=== PATIENT | female | born 1995 | race Caucasian/White ===

== ENCOUNTER → 2020-09-03 16:41 | Outpatient (BNVA) | payer OTHER, SELFPAY | PROVIDERS: Family Provider Family Medicine; PCP Family Medicine; Visit Provider Nurse Practitioner | DX: R53.83 Other fatigue (principal) | CPT/HCPCS: 80053; 80061; 81000; 84443; 85025 ==

== ENCOUNTER → 2020-09-04 00:01 | Outpatient (BNVA) | payer OTHER, SELFPAY | PROVIDERS: Family Provider Family Medicine; PCP Family Medicine; Visit Provider Family Medicine | DX: R42 Dizziness and giddiness (principal); R53.83 Other fatigue | CPT/HCPCS: 82951 ==

== ENCOUNTER → 2021-04-22 11:19 | Outpatient (BNVA) | payer OTHER, MEDICAID, SELFPAY | PROVIDERS: Family Provider Family Medicine; PCP Family Medicine; Visit Provider Nurse Practitioner Family | DX: R30.0 Dysuria (principal); N92.6 Irregular menstruation, unspecified | CPT/HCPCS: 81000; 84702 ==

== ENCOUNTER → 2021-12-02 10:22 | Outpatient (BNVA) | payer MEDICAID, SELFPAY | PROVIDERS: PCP Family Medicine; Visit Provider Family Medicine | DX: Z01.812 Encounter for preprocedural laboratory examination (principal); Z20.822 Contact with and (suspected) exposure to COVID-19 | CPT/HCPCS: 87635 ==

== ENCOUNTER 2021-12-10 04:53 | Inpatient (IN) | payer MEDICAID, SELFPAY ==
[2021-12-10] VITALS (28 sets, daily range): BP systolic 99–123; BP diastolic 55–82; PULSE 69–99; RESP 17–18; TEMP 34.7–36.9; O2SAT 96–100; BMI 34.9
[2021-12-10 05:26] LABS: Basophils % 0.3 %; Eosinophils # 0.3 10^3/uL (0.0-0.8); Eosinophils % 4.8 %; Hematocrit 34.9 % (37.0-47.0); Hemoglobin 12.1 g/dL (11.5-15.3); Lymphocytes # 1.8 10^3/uL (0.8-4.8); Lymphocytes % 25.5 %; Mean Corpuscular HGB Conc 34.7 g/dL (30.0-36.0); Mean Corpuscular Hemoglobin 32.4 pg (28.0-34.0); Mean Corpuscular Volume 93.6 fl (81-99); Mean Platelet Volume 10.6 fL (7.4-10.4); Monocytes # 0.6 10^3/uL (0.2-0.9); Monocytes % 8.7 %; Neutrophils # 4.24 10^3/uL (1.8-7.7); Neutrophils % 59.3 %; Nucleated Red Blood Cells % 0 %; Platelet Count 143 10^3/cmm (130-400); Red Blood Count 3.73 10^6/uL (4.1-5.3); Red Cell Distribution Width 13.3 % (12.1-15.1); White Blood Count 7.1 10^3/uL (4.0-10.0)
[2021-12-10] MEDS: lactated ringers 1,000 ML 999 ML IV ×3 (05:32→16:21)
--- NOTE | 2021-12-10 06:46 | P.HP_ITS ---
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 The patient has had an unremarkable . There have been no complications other than her breech presentation. We discussed the option of performing external version. She declined. Her blood type is O+. Her antibody is negative. Her glucose screen was negative. She is GBS negative. The remainder of her labs are within normal limits. Present Details : 4 Para: 2 Date of Last Menstrual Period: 08/24/20 Calculated Date of Delivery: 05/31/21 Gestational Age Based on Last Menstrual Period: 69 Labs Rubella: Immune RPR: Negative GBS: Negative Review of Systems General: Reports: 10 or more systems reviewed and unremarkable except in HPI and below Const: Reports: fatigue; Denies: fever(s) Eyes: Denies: change in vision Card: Denies: chest pain Musc: Reports: back pain Dominic/Lymph: Denies: easy bruising Medications/Allergies Allergies Allergy/AdvReac Type Severity Reaction Status Date / Time amoxicillin Allergy rash/hives Verified 04/22/21 11:21 latex Allergy swelling/ra Verified 04/22/21 11:21 sh Penicillins Allergy rash Verified 04/22/21 11:21 sulfa ear drops Allergy hives Uncoded 04/22/21 11:21 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 PFSH: Medical History Attempted IUD removal, unsuccessful History of asthma IUD strings lost Surgical History History of appendectomy History of tonsillectomy Family History Other Cancer Diabetes Hypertension Stroke Denies family history of Dementia Chronic kidney disease (CKD) Anesthesia complication Bleeding disorder Lung disease Social History Smoking and tobacco status: never smoked Second hand smoke exposure: No Smoking risk assessment/counseling performed?: No Alcohol intake: never Desire information about alcohol rehabilitation?: No Counseling given: No Desire information about substance/drug rehabilitation?: No Counseling given: No Adopted: No Caregiver/support person: No Lives independently: Yes Household members: spouse Housing: House Marital status: Number of children: 2 service: No Current occupational status: employed Current occupation: [employer] History of recent travel: No Current gender identity: Female Other Female Reproductive History: Hx Age of Menarche: 18 Duration of menses: >10 days Menstrual flow: normal/abnormal: abnormal History History History 3 Term 2 Miscarriages/Ectopic 1 0 Living Children 2 Vitals/I&O/Wt Last Vital Signs Temp 97.7 F 12/10/21 05:34 Pulse 88 12/10/21 06:34 Resp 18 12/10/21 05:05 BP 102/60 12/10/21 06:34 12/09/21 12/09/21 12/10/21 14:59 22:59 06:59 Intake Total 1000 / 1000 Balance 1000 / 1000 Weight last 48 hrs Weight 210 lb Physical Exam Const: COMMON NORMALS: patient oriented x3 and alert HENMT: COMMON NORMALS: moist oral mucous membranes HEAD & SCALP: normal to inspection Chest: COMMONS NORMALS: normal inspection of the chest Resp: COMMON NORMALS: clear to auscultation bilaterally AUSCULTATION: clear to auscultation bilaterally Cardio: COMMON NORMALS: regular rate and regular rhythm RATE: regular rate RHYTHM: regular rhythm GI: INSPECTION: Yes normal to inspection and Yes other (Gravid) Extremity: COMMON NORMALS: normal to inspection GENERAL: Yes edema (Trace) Neuro: COMMON NORMALS: patient oriented x3, moves all extremities and no sensory deficits noted SENSORIUM/ORIENTATION: Yes alert Psych: COMMON NORMALS: mental status grossly normal Skin: COMMON NORMALS: no rashes or lesions noted GENERAL SKIN EXAM: no rashes or lesions noted Data : 12/10/21 05:15 A&P Assessment and plan (1) 39 weeks gestation of : We will proceed with the as scheduled. We have discussed the risks of bleeding, infection, and damage intra-abdominal organs. The patient and her understand these risks and wished to proceed. I anticipate routine post care. 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
[2021-12-10] MEDS: famotidine 20 mg/2 mL INJ IVP (06:49)
[2021-12-10] MEDS: citric acid-sodium citrate 30 mL UDC PO (06:49)
[2021-12-10] MEDS: metoclopramide 5 mg/mL SDV 2 mL 10 MG IVP (06:49)
--- NOTE | 2021-12-10 07:07 | P.ANESASSM_ITS ---
Documented by User: Ismael Cerrato CRNA 12/10/21 07:10 Pre-Anesthetic Assessment Height/Weight: Height 1.65 m Weight 95.254 kg Temp Pulse Resp BP 97.7 F 81 18 115/68 12/10/21 05:34 12/10/21 06:49 12/10/21 05:05 12/10/21 06:49 Preop Diagnosis: breech presentation Was Beta Surinder taken within 24 hours: N/A Was Clonidine taken within 24 hours: N/A Last intake: Intake Last Liquid Date 12/09/21 Last Liquid Time 20:00 Last Solid Date 12/09/21 Last Solid Time 19:30 Social No alcohol and No tobacco Exam alert, oriented x 3, clear to auscultation bilaterally and regular rate & rhythm Airway Submandibular: within normal limits Cervical ROM: within normal limits Mallampati: Class II Dentition: full Pulmonary Asthma (as a child, no problems now) CV/HEM None reported None reported Hepatic None reported GI Gastroesophageal Reflux Disease () Metabolic None reported Musc/skel None reported Neuropsych None reported Anesthetic Plan ASA status: 2 Anesthesia: Regional (specify below) Medications/Allergies Allergies Allergy/AdvReac Type Severity Reaction Status Date / Time amoxicillin Allergy rash/hives Verified 04/22/21 11:21 latex Allergy swelling/ra Verified 04/22/21 11:21 sh Penicillins Allergy rash Verified 04/22/21 11:21 sulfa ear drops Allergy hives Uncoded 04/22/21 11:21 [facility], [facility] Anesthesia Medical History Attempted IUD removal, unsuccessful History of asthma IUD strings lost Surgical History History of appendectomy History of tonsillectomy Family History Other Cancer Diabetes Hypertension Stroke Denies family history of Dementia Chronic kidney disease (CKD) Anesthesia complication Bleeding disorder Lung disease Social History Smoking and tobacco status: never smoked Second hand smoke exposure: No Smoking risk assessment/counseling performed?: No Alcohol intake: never Desire information about alcohol rehabilitation?: No Counseling given: No Desire information about substance/drug rehabilitation?: No Counseling given: No Adopted: No Caregiver/support person: No Lives independently: Yes Household members: spouse Housing: House Marital status: Number of children: 2 service: No Current occupational status: employed 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
--- NOTE | 2021-12-10 08:26 | ANE.PACU2 ---
Inpatient post-anesthesia follow up: Airway intact: Yes Vital signs: Temperature 97.7 F Pulse Rate 81 Respiratory Rate 18 Blood Pressure 115/68 Pulse Oximetry Oxygen Delivery Me thod Room Air Oxygen Flow Rate Fraction of Inspir ed Oxygen Hydration adequate: Yes Nausea and vomiting: No Pain level: 1 Mental status: Baseline
--- NOTE | 2021-12-10 08:32 | P.OP_ITS ---
Operative Report Date of procedure: December 10, 2021 Pre-op diagnosis: Preop Diagnosis breech presentation Post-op diagnosis: Breech presentation Procedure done: Lower transverse section Specimens removed/disposition: 1. Male with a weight of 7 pounds 9 ounces and Apgars of 8 and 9 2. Placenta with a three-vessel cord delivered intact Pathology: None Surgeon: Antonino Underwood Estimated blood loss: 600 Brief History: Refer to history and physical Procedure: The patient was brought back to the operating room where she was prepped and draped in usual sterile fashion. Anesthesia was found to be adequate. A lower transverse skin incision was then made with a #10 blade. I then dissected down to the underlying subcutaneous tissue until arriving at the prerectal fascia. The fascia was then nicked with the scalpel bilaterally. The fascial incisions were then carried laterally with Lawton scissors. Attention was then turned to the superior aspect of the incision which was grasped with kochers and tented up away from the underlying rectus abdominis muscles. The muscles were then dissected away from the fascia manually, and later with Lawton scissors. Attentio n was then turned to the inferior aspect of the incision, and the fascia was dissected away from the underlying muscle in similar fashion. The rectus abdominis muscles were then spread manually. The peritoneum was entered manually. Excellent visualization of the uterus was noted. A lower transverse uterine incision was then made with a #10 blade. Upon arriving at the intrauterine cavity, the uterine incision was then extended manually. The infant was noted to be in gustavo breech position. The baby was delivered without difficulty. After delivery of the head, the mouth and nose were sucti oned at the site of the incision. There was no meconium. There was no nuchal cord. The cord was cut and clamped. The baby was then handed to the waiting nurse. The placenta was removed intact. The uterus was externalized. The intrauterine cavity was cleansed of any remaining debris. The uterine incision was reapproximated in 2 layers. The first layer was performed with 0 Vicryl in a running locked stitch. The second layer was an imbricating stitch also using 0 Vicryl. The uterus was replaced into the abdomen. The peritoneum was then irrigated with warm saline. I reexamined the uterine incision and found it to be hemostatic. The rectus abdominis muscles were then reapproximated using 0 Vicryl in a running stitch. The fascia was then reapproximated using 0 Vicryl in running stitch. The subcutaneous tissue was then reapproximated using 0 Vicryl in a running stitch. The skin was reapproximated using volodymyr. A sterile dressing was placed. All counts were correct x2. Both the mother and baby were in stable condition.
--- NOTE | 2021-12-10 10:35 | PC.NURSE ---
Several different thermometers all gave the same reading mena cardenas applied at this time
[2021-12-10] MEDS: ondansetron 2 mg/ML SDV 2 mL 4 MG IVP (10:49)
--- NOTE | 2021-12-10 11:30 | PC.NURSE ---
Called respiratory and requested them to bring incentive spirometer as we are out.
[2021-12-10] MEDS: dextrose 5%-lactated ringers 1,000 ML 125 ML IV ×2 (12:45→18:41)
[2021-12-10] MEDS: lanolin oint 7 gm 1 APPLIC TOPICAL (12:52)
--- NOTE | 2021-12-10 13:34 | ANE.PACU2 ---
Inpatient post-anesthesia follow up: Airway intact: Yes Vital signs: Temperature 98.3 F Pulse Rate 99 Respiratory Rate 17 Blood Pressure 110/65 Pulse Oximetry 98 Oxygen Delivery Me thod Room Air Oxygen Flow Rate Fraction of Inspir ed Oxygen Hydration adequate: Yes Nausea and vomiting: No Pain level: 1 Mental status: Baseline
--- NOTE | 2021-12-10 14:30 | PC.NURSE ---
Patient was assisted from the chair back to bed with no problems. She tolerated it well. She denies any nausea or dizziness at this time. She would like to rest after being in the chair for over an hour before she tries to walk. She is going to try and walk around 1530.
--- NOTE | 2021-12-10 16:15 | PC.NURSE ---
Patient was assisted from bed to trial walking for the first time since this morning. She has been up in the room to get into chair and back into bed and tolerated that fine but once she exited the room and walked a couple feet she reported feeling dizzy and nauseated. She was very pale and her knees started to buckle. She did not lose consciousness. This nurse yelled out for help and was brought over a chair for the patient to sit in she was helped into the chair. Her vitals were obtained and her blood pressure was 71/46. We gave her apple juice to drink and cold rag for her head. She was started on a LR bolus of fluid at 999. She was wheeled back into her room and assisted back to bed. Her color had returned by the time she was helped back to bed. She was no longer feeling dizzy or nauseated. Her vitals were obtained again and her blood pressure was 125/65 heart rate was 86 temperature was 98.4 and RR was 17. Report was given to Dr. Underwood and order for CBC was obtained and blood sent to lab. Dr. Underwood came to evaluate the patient and gave no new orders continue the same. She is going to try and eat some jello as she is on a clear liquid diet at this time.
[2021-12-10 16:58] LABS: Basophils % 0.3 %; Eosinophils # 0.1 10^3/uL (0.0-0.8); Eosinophils % 0.5 %; Hematocrit 33.1 % (37.0-47.0); Hemoglobin 10.6 g/dL (11.5-15.3); Lymphocytes # 1.1 10^3/uL (0.8-4.8); Lymphocytes % 8.9 %; Mean Platelet Volume 10.4 fL (7.4-10.4); Monocytes # 0.6 10^3/uL (0.2-0.9); Monocytes % 4.6 %; Neutrophils # 10.92 10^3/uL (1.8-7.7); Neutrophils % 84.9 %; Nucleated Red Blood Cells % 0 %; Platelet Count 127 10^3/cmm (130-400); Red Blood Count 3.31 10^6/uL (4.1-5.3); Red Cell Distribution Width 13.7 % (12.1-15.1); White Blood Count 12.9 10^3/uL (4.0-10.0)
--- NOTE | 2021-12-10 18:29 | PC.NURSE ---
Called placed to Dr. Underwood to discuss if the results of CBC had to leave message.
[2021-12-10] MEDS: docusate sodium 100 mg Capsule PO (18:41)
--- NOTE | 2021-12-10 21:00 | PC.NURSE ---
patient in [place] ambulating assisted by Celeste Vasquez RN
[2021-12-10] MEDS: ketorolac 30 mg/mL INJ IVP (21:01)
[2021-12-11] MEDS: ketorolac 30 mg/mL INJ IVP (03:10)
[2021-12-11 03:34] VITALS: BP 103/60; PULSE 105; RESP 18; TEMP 37.3
[2021-12-11 05:15] LABS: Basophils % 0.2 %; Eosinophils # 0.1 10^3/uL (0.0-0.8); Eosinophils % 1.2 %; Hematocrit 23.5 % (37.0-47.0); Lymphocytes # 1.3 10^3/uL (0.8-4.8); Lymphocytes % 12.7 %; Mean Corpuscular Hemoglobin 32.7 pg (28.0-34.0); Mean Corpuscular Volume 95.9 fl (81-99); Mean Platelet Volume 10.2 fL (7.4-10.4); Monocytes # 0.6 10^3/uL (0.2-0.9); Monocytes % 5.7 %; Neutrophils # 7.98 10^3/uL (1.8-7.7); Neutrophils % 79.9 %; Nucleated Red Blood Cells % 0 %; Platelet Count 125 10^3/cmm (130-400); Red Blood Count 2.45 10^6/uL (4.1-5.3); Red Cell Distribution Width 13.6 % (12.1-15.1)
[2021-12-11] MEDS: prenatal vitamin Capsule 1 CAP PO (08:33)
[2021-12-11] MEDS: ferrous sulfate EC 325 mg Tablet PO (08:33)
[2021-12-11] MEDS: docusate sodium 100 mg Capsule PO (08:34)
[2021-12-11] MEDS: HYDROcodone-acetaminophen 5-325 mg Tablet PO ×3 (08:34→19:17)
[2021-12-11 09:45] VITALS: BP 115/74; PULSE 112; RESP 17; TEMP 36.6; O2SAT 98
--- NOTE | 2021-12-11 12:09 | PM.PN ---
Subjective Subjective: She states she is doing well today. She is still on clear liquid diet as she has not passed any flatus. Her pain is little more increased from yesterday but that is to be expected. Her bleeding is about likely heavy period. Vitals/I&O/Wt Last Vital Signs Temp 99.1 F 12/11/21 03:34 Pulse 105 H 12/11/21 03:34 Resp 18 12/11/21 03:34 BP 103/60 12/11/21 03:34 Pulse Ox 100 12/10/21 19:02 12/10/21 12/11/21 12/11/21 22:59 06:59 14:59 Intake Total 977.667 / 4077.667 Output Total 1300 / 2350 525 / 2875 Balance -322.333 / 1727.667 -525 / 1202.667 Weight last 48 hrs Weight 95.254 kg Physical Exam Const: OTHER: Alert and oriented sitting up breast-feeding baby in bed, pupils equal round reactive to light ocular extraocular movements intact, heart regular rate and rhythm, lungs clear to auscultation bilaterally, abdomen is soft with appropriate postoperative tenderness, bowel sounds are heard in all but the left lower quadrant, incision is clean dry and intact, volodymyr are in place, there is no erythema or exudates, she has trace edema with no calf tenderness. Urinary Catheter Management: Bowen Latex Free: Cath Placed During This Visit: yes, but has since been removed by the nurse Reason for Continuing Indwelling Catheter: Perioperative Use in Selected Surgeries Urinary Catheter Date of Insertion: 12/10/21 Urinary Catheter Time of Insertion: 07:26 Date Urinary Catheter Removed: 12/10/21 Time Urinary Catheter Discontinued: 22:30 Data : 12/11/21 05:10 A&P Assessment and plan (1) Status post primary low transverse section: Postop day #1 doing well. Since she has good bowel sounds and is feeling quite hungry, I will go ahead and let her eat. She was advised to get up and walk the halls today. She was advised to stop eating immediately if she felt any nausea or abdominal pain. Status: Acute (2) Breech presentation: Status: Acute (3) 39 weeks gestation of : Status: Acute Attestations Medical Necessity Statement*: Routine postoperative and care Coding Level of Care Code Acute Supervisor Slitting And Shipping for Chg Fwd Diagnoses Status post primary low transverse section Z98.891 Breech presentation O32.1XX0 39 weeks gestation of Z3A.39
[2021-12-11] MEDS: simethicone 80 mg Chew PO (14:57)
[2021-12-11 16:50] VITALS: BP 120/78; PULSE 78; RESP 17; TEMP 36.8
[2021-12-11 21:00] VITALS: BP 103/61; PULSE 101; RESP 18; TEMP 36.8
[2021-12-11] MEDS: ibuprofen 800 mg tablet PO (21:11)
[2021-12-12 03:00] VITALS: BP 95/59; PULSE 84; RESP 18; TEMP 36.5
[2021-12-12] MEDS: HYDROcodone-acetaminophen 5-325 mg Tablet PO (07:15)
[2021-12-12] MEDS: prenatal vitamin Capsule 1 CAP PO (08:44)
[2021-12-12] MEDS: docusate sodium 100 mg Capsule PO (08:44)
[2021-12-12] MEDS: ibuprofen 800 mg tablet PO ×2 (08:44→14:26)
[2021-12-12 10:48] VITALS: BP 113/75; PULSE 98; RESP 18; TEMP 36.5; O2SAT 99
--- NOTE | 2021-12-12 11:19 | P.DS_ITS ---
Discharge Providers Date of Admission: 12/10/21 04:53 Date of Discharge: December 12, 2021 Attending Provider at Admission: Antonino Underwood MD Attending Provider at Discharge: Antonino Underwood MD Primary Care Provider: Antonino Underwood MD Diagnoses at Discharge Discharge Diagnosis (1) Status post primary low transverse section: Status: Acute (2) Breech presentation: Status: Acute (3) 39 weeks gestation of : Status: Acute Reason for Visit Reason for Visit: IUP, C_Section on 12-10-21 Hospital Course Hospital Course This is a 26-year-old G4 now P3 who was admitted for a scheduled primary section secondary to breech presentation. There were no complications of the procedure. She did well postoperatively and on postop day #2 she was amb ulating, tolerating a regular diet, was passing flatus, and had good pain control. She was discharged home in good condition. Physical Exam Narrative: Alert and oriented, sitting on bedside couch. Heart regular rate and rhythm, lungs clear to auscultation bilaterally, abdomen soft with appropriate postoperative tenderness, incision clean dry and intact with volodymyr in place. No calf tenderness no edema. Urinary Catheter Management: Bowen Latex Free: Cath Placed During This Visit: yes, but has since been removed by the nurse Reason for Continuing Indwelling Catheter: Perioperative Use in Selected Surgeries Urinary Catheter Date of Insertion: 12/10/21 Urinary Catheter Time of Insertion: 07:26 Date Urinary Catheter Removed: 12/10/21 Time Urinary Catheter Discontinued: 22:30 Discharge Data Studies Completed and Pending Laboratory Results WBC 10.0 10^3/uL (4.0-10.0) 12/11/21 05:10 RBC 2.45 10^6/uL (4.1-5.3) L 12/11/21 05:10 Hgb 8.0 g/dL (11.5-15.3) L 12/11/21 05:10 Hct 23.5 % (37.0-47.0) L 12/11/21 05:10 MCV 95.9 fl (81-99) 12/11/21 05:10 MCH 32.7 pg (28.0-34.0) 12/11/21 05:10 MCHC 34.0 g/dL (30.0-36.0) D 12/11/21 05:10 RDW 13.6 % (12.1-15.1) 12/11/21 05:10 Plt Count 125 10^3/cmm (130-400) L 12/11/21 05:10 MPV 10.2 fL (7.4-10.4) 12/11/21 05:10 Neut % (Auto) 79.9 % 12/11/21 05:10 Lymph % (Auto) 12.7 % 12/11/21 05:10 Davison % (Auto) 5.7 % 12/11/21 05:10 Eos % (Auto) 1.2 % 12/11/21 05:10 Baso % (Auto) 0.2 % 12/11/21 05:10 Neut # (Auto) 7.98 10^3/uL (1.8-7.7) H 12/11/21 05:10 Lymph # (Auto) 1.3 10^3/uL (0.8-4.8) 12/11/21 05:10 Davison # (Auto) 0.6 10^3/uL (0.2-0.9) 12/11/21 05:10 Eos # (Auto) 0.1 10^3/uL (0.0-0.8) 12/11/21 05:10 Baso # (Auto) 0.0 10^3/uL (0.0-0.1) 12/11/21 05:10 Nucleated RBC % (auto) 0 % 12/11/21 05:10 Nucleated RBCs # 0.0 /100WBC 12/11/21 05:10 Vitals Last Vital Signs Temp 97.7 F 12/12/21 10:48 Pulse 98 12/12/21 10:48 Resp 18 12/12/21 10:48 BP 113/75 12/12/21 10:48 Pulse Ox 99 12/12/21 10:48 Discharge Plan Discharge Patient Disposition: Home Condition: Stable Prescriptions: New ibuprofen 800 mg Tablet 800 mg PO TID PRN (Reason: Abdominal Discomfort) Qty: 30 0RF hydrocodone-acetaminophen 5-325 mg Tablet 1 - 2 tab PO Q4H PRN (Reason: Moderate To Severe Pain) Qty: 15 0RF docusate sodium 100 mg Capsule 100 mg PO BID 30 Days Qty: 60 0RF Discharge Orders: Discharge Order (Routine); Ordered 12/12/21 Ordered By: Hailey Campo Referrals: Hailey Campo MD [Physician] - 1-3 days (Monday) Discharge Diet: Usual diet Discharge Activity: Limit activity as instructed Patient Instructions: Depression (DC), Expression, Collection and Storage of Breast Milk (DC), Bleeding (DC), Preeclampsia and Eclampsia After Delivery (GEN), OB - Yasmine/Alber, OB Discharge Report, Opioid Safety, OB Home Care Discharge Attestations Time Spent in Discharge Care*: less than 30 min Quality Metrics Clinical Quality Measures [ No reported AMI, CVA or VTE this stay] Coding Level of Care Code Acute Chg FW DC note Diagnoses Status post primary low transverse section Z98.891 Breech presentation O32.1XX0 39 weeks gestation of Z3A.39
[2021-12-12 18:32] VITALS: BP 121/75; PULSE 98; RESP 16; TEMP 36.7; O2SAT 100
== END 2021-12-12 18:20 | disposition home or self-care (01) | DRG 788 ==
PROVIDERS: Admitting Provider Family Medicine; PCP Family Medicine; Visit Provider Family Medicine
PROC: 10D00Z1 Extraction of Products of Conception, Low, Open Approach (ICD-10-PCS; CPT 59514; principal; 2021-12-10 07:00)
DX: O64.1XX0 Obstructed labor due to breech presentation, not applicable or unspecified (principal); O99.62 Diseases of the digestive system complicating childbirth; K21.9 Gastro-esophageal reflux disease without esophagitis; Z3A.39 39 weeks gestation of pregnancy; Z37.0 Single live birth
CPT/HCPCS: 12345; 36415; 51702; 59025; 59409; 85025; 96374; 96375; 96376; J0690; J1885; J2274; J2370; J2405; J2765; J3490

== ENCOUNTER → 2022-01-21 10:53 | Outpatient (BNVA) | payer MEDICAID, SELFPAY | PROVIDERS: PCP Family Medicine; Visit Provider Nurse Practitioner Family | DX: R50.9 Fever, unspecified (principal); R68.89 Other general symptoms and signs | CPT/HCPCS: 87400 ==

== ENCOUNTER 2022-09-30 01:52 | Emergency (ER) | payer MEDICAID, SELFPAY ==
[2022-09-30 01:56] VITALS: BP 124/82; PULSE 81; RESP 16; TEMP 37.1; O2SAT 97; BMI 30.4
[2022-09-30 02:20] VITALS: BP 126/86; PULSE 81; RESP 16; O2SAT 99
--- NOTE | 2022-09-30 02:24 | CTR_ITS ---
PROCEDURE INFORMATION: Exam: CT Abdomen And Pelvis Without Contrast Exam date and time: 09/30/2022 2:59 AM Age: 27 years old Clinical indication: Abdominal pain; Prior surgery; Surgery type: Appy. Csection; Patient HX: C/O left flank pain with nausea. TECHNIQUE: Imaging protocol: Computed tomography of the abdomen and pelvis without contrast. Radiation optimization: All CT scans at this facility use at least one of these dose optimization techniques: automated exposure control; mA and/or kV adjustment per patient size (includes targeted exams where dose is matched to clinical indication); or iterative reconstruction. COMPARISON: CT abdomen pelvis w con* [id number] 12/04/2017 2:27 AM RADIATION DOSE METRICS: Total DLP (mGy-cm): 705.53 FINDINGS: Lungs: The visualized lung bases are clear. Liver: Unremarkable. No discrete mass. Gallbladder and bile ducts: No calcified gallstones or biliary dilation identified. Pancreas: Unremarkable with no suspicious mass. No ductal dilation. Spleen: The spleen is not enlarged. No suspicious mass is noted. Adrenal glands: Normal. No mass. Kidneys and ureters: No solid renal mass or hydronephrosis. Stomach and bowel: Moderately fecal filled colon. No small bowel obstruction, abscess or free air. Appendix: Status post appendectomy. Intraperitoneal space: See Stomach and bowel finding. Vasculature: No AAA or acute vascular lesion identified. Lymph nodes: No enlarged lymph nodes. Urinary bladder: Unremarkable as visualized. Reproductive: IUD in place. Bones/joints: No acute fracture. Soft tissues: No acute or suspicious finding noted. CT/CT kidney stone 32020 IMPRESSION: 1. No acute finding. 2. Constipation and other chronic findings above. Absent appendix.
--- NOTE | 2022-09-30 02:25 | W.ED.ABDPA2 ---
Documented by User: COLLIN Gamboa 09/30/22 02:58 HPI - Abdominal Pain General: Chief Complaint: Abdominal Pain Stated Complaint: lower abd and back pain Time Seen by Provider: 09/30/22 01:56 History of Present Illness: Patient is a 27-year-old female comes to the ED with left flank pain. Symptoms started at 10 PM tonight. Patient says she was at rest and developed an abrupt sharp intense pain in her left lower side of her abdomen and in left lower back. She rates the pain currently an 8 out of 10. Denies any pain like this in the past. Patient has IUD and states that she has some vaginal bleeding daily that she describes as spotting. this morning she did have an episode where she bled through 1 pad over a span of 1 to 2 hours but then the bleeding completely stopped. She did not have any other symptoms at the time of heavy vaginal bleeding earlier this morning. She has not had any other vaginal bleeding since this morning. Denies fevers, dysuria or hematuria. Denies any history of kidney stones. She has a past surgical history of a and appendectomy. Associated Symptoms: Denies chills, constipation, diarrhea, dysuria, fever(s), hematochezia, hematuria, nausea and vomiting Related Data: Date of Last Menstrual Period: 08/24/20 Review of Systems Const: Denies: fever(s), chills or fatigue Eyes: Denies: change in vision or eye discomfort ENMT: Denies: throat pain, odynophagia, nasal discharge or nasal congestion Card: Denies: chest pain, palpitations, edema, swelling of feet/ankles, dyspnea on exertion or orthopnea Resp: Denies: dyspnea, productive cough or non-productive cough GI: Denies: abdominal pain, nausea, vomiting, diarrhea, constipation or hematochezia : Reports: flank pain (Left flank) and vaginal bleeding (Episode of bleeding this morning. No current bleeding); Denies: dysuria or hematuria Musc: Denies: neck pain, back pain or extremity swelling Skin/Breast: Denies: rash or new lesions Neuro: Denies: headache(s), numbness in extremities or weakness in extremities PFS ED PFSH: Medical History Attempted IUD removal, unsuccessful History of asthma IUD strings lost Surgical History History of appendectomy History of tonsillectomy Family History Other Cancer Diabetes Hypertension Stroke Denies family history of Dementia Chronic kidney disease (CKD) Anesthesia complication Bleeding disorder Lung disease Social History Smoking and tobacco status: never smoked Second hand smoke exposure: No Smoking risk assessment/counseling performed?: No Alcohol intake: never Desire information about alcohol rehabilitation?: No Counseling given: No Desire information about substance/drug rehabilitation?: No Counseling given: No Adopted: No Caregiver/support person: No Lives independently: Yes Household members: spouse Housing: House Marital status: Number of children: 2 service: No Current occupational status: employed Current occupation: [employer] History of recent travel: No Current gender identity: Female Female Reproductive History: Date of last menstrual period: 08/24/20 Para: 2 Spontaneous abortions: Yes Physical Exam Const: COMMON NORMALS: patient oriented x3, healthy appearing and alert GENERAL APPEARANCE: cooperative HENMT: COMMON NORMALS: normocephalic HEAD & SCALP: normocephalic MOUTH: Normal oral and palatal mucosa present THROAT: posterior oropharynx normal and uvula midline Neck/C-Spine: COMMON NORMALS: supple GENERAL: Yes normal visual inspection Resp: COMMON NORMALS: normal respiratory effort, No retractions, No use of accessory muscles and clear to auscultation bilaterally AUSCULTATION: clear to auscultation bilaterally Cardio: COMMON NORMALS: regular rate, regular rhythm, S1 normal heart sound present, S2 normal heart sound present, No gallops present (Cardio), No clicks present (Cardio), No murmurs present (Cardio) and Peripheral pulses 2+ throughout RATE: regular rate RHYTHM: regular rhythm HEART SOUNDS: S1 normal heart sound present and S2 normal heart sound present PERIPHERAL PULSES: Peripheral pulses 2+ throughout GI: COMMON NORMALS: Normal to inspection, nondistended, normoactive bowel sounds present, Soft to palpation and no masses PALPATION: Yes Soft to palpation and Yes Tenderness to palpation present (GI) Details: LLQ : BLADDER/KIDNEY EXAM: Yes CVA tenderness on the left Back/Pelvis: GENERAL BACK: Yes CVA tenderness Extremity: COMMON NORMALS: normal to inspection Neuro: COMMON NORMALS: patient oriented x3 SENSORIUM/ORIENTATION: Yes alert GAIT: Yes Normal gait present Skin: GENERAL SKIN EXAM: dry skin Course Vital Signs: Vital signs: Vital Signs Temperature 98.7 F 09/30/22 01:56 Pulse Rate 89 09/30/22 04:09 Respiratory Rate 14 09/30/22 04:09 Blood Pressure 121/75 09/30/22 04:09 Pulse Oximetry 99 09/30/22 04:09 Oxygen Delivery Me thod 09/30/22 01:56 MDM - Abdominal Pain Medical Decision Making Patient is a 27-year-old female comes to the ED with abrupt onset of left flank pain. Past surgical history of appendectomy and approximately 10 months ago. Denies any history of kidney stones. Denies any dysuria or hematuria. Vitals are stable. Patient appears nontoxic and in no acute distress. She has some left CVA tenderness along with some left lower quadrant abdominal tenderness but rest of exam is benign. Labs and CT kidney stone pending. Patient case was signed over to Dr. Lee and he will be managing patient care and dispo plan. Lab Data I reviewed the patient's lab results. 09/30/22 02:28 09/30/22 02:28 Labs/Radiology: Radiology Impressions Abdomen/Pelvis CT 09/30/22 02:24 IMPRESSION: 1. No acute finding. 2. Constipation and other chronic findings above. Absent appendix. Laboratory Results WBC 13.6 10^3/uL (4.0-10.0) H 09/30/22 02:28 RBC 4.73 10^6/uL (4.1-5.3) 09/30/22 02:28 Hgb 14.5 g/dL (11.5-15.3) 09/30/22 02:28 Hct 42.7 % (37.0-47.0) 09/30/22 02:28 MCV 90.3 fl (81-99) 09/30/22 02:28 MCH 30.7 pg (28.0-34.0) 09/30/22 02:28 MCHC 34.0 g/dL (30.0-36.0) 09/30/22 02:28 RDW 12.1 % (12.1-15.1) 09/30/22 02:28 Plt Count 189 10^3/cmm (130-400) 09/30/22 02:28 MPV 9.5 fL (7.4-10.4) 09/30/22 02:28 Neut % (Auto) 84.9 % 09/30/22 02:28 Lymph % (Auto) 9.1 % 09/30/22 02:28 Terrell % (Auto) 4.3 % 09/30/22 02:28 Eos % (Auto) 0.7 % 09/30/22 02:28 Baso % (Auto) 0.3 % 09/30/22 02:28 Neut # (Auto) 11.58 10^3/uL (1.8-7.7) H 09/30/22 02:28 Lymph # (Auto) 1.2 10^3/uL (0.8-4.8) 09/30/22 02:28 Terrell # (Auto) 0.6 10^3/uL (0.2-0.9) 09/30/22 02:28 Eos # (Auto) 0.1 10^3/uL (0.0-0.8) 09/30/22 02:28 Baso # (Auto) 0.0 10^3/uL (0.0-0.1) 09/30/22 02:28 Nucleated RBC % (auto) 0 % 09/30/22 02:28 Nucleated RBCs # 0.0 /100WBC 09/30/22 02:28 Sodium 138 mmol/L (136-145) 09/30/22 02:28 Potassium 3.8 mmol/L (3.5-5.1) 09/30/22 02:28 Chloride 104 mmol/L (98-107) 09/30/22 02:28 Carbon Dioxide 24 mmol/L (22-29) 09/30/22 02:28 Anion Gap 13.8 (5-19) 09/30/22 02:28 BUN 12 mg/dL (6-20) 09/30/22 02:28 Creatinine 0.6 mg/dL (0.5-0.9) 09/30/22 02:28 GFR Calculation 121.8 mL/min (90-130) 09/30/22 02:28 Glucose 107 mg/dL (65-115) 09/30/22 02:28 Calculated Osmolality 286 mOsm/kg (285-295) 09/30/22 02:28 Calcium 9.0 mg/dL (8.5-10.5) 09/30/22 02:28 Total Bilirubin 0.3 mg/dL (0.15-1.2) 09/30/22 02:28 AST 14 U/L (0-32) 09/30/22 02:28 ALT 9 U/L (0-33) 09/30/22 02:28 Alkaline Phosphatase 97 U/L (35-105) 09/30/22 02:28 Total Protein 7.3 g/dL (6.6-8.7) 09/30/22 02:28 Albumin 4.4 g/dL (3.5-5.2) 09/30/22 02:28 Globulin 2.9 g/dL (1.3-4.6) 09/30/22 02:28 Lipase 23 U/L (13-60) 09/30/22 02:28 HCG, Qual Negative (Negative) 09/30/22 02:28 Urine Color Yellow (Yellow) 09/30/22 02:28 Urine Appearance Sl hazy (CLEAR) A 09/30/22 02:28 Urine pH 5 (5-7) 09/30/22 02:28 Ur Specific [place] 1.020 (1.005-1.030) 09/30/22 02:28 Urine Protein Trace (Negative) 09/30/22 02:28 Urine Glucose (UA) Norm (Normal) 09/30/22 02:28 Urine Ketones 1+ (Negative) H 09/30/22 02:28 Urine Blood 3+ (Negative) H 09/30/22 02:28 Urine Nitrate Negative (Negative) 09/30/22 02:28 Urine Bilirubin Neg (Negative) 09/30/22 02:28 Urine Urobilinogen Norm mg/dL (Negative) 09/30/22 02:28 Ur Leukocyte Esterase Trace (Negative) H 09/30/22 02:28 Urine RBC 10-15 /hpf (0-2) H 09/30/22 02:28 Urine WBC 0-4 /hpf (0-5) H 09/30/22 02:28 Ur Squamous Epith Cells 10-15 /hpf (0-5) H 09/30/22 02:28 Amorphous Sediment Not Reportable 09/30/22 02:28 Urine Bacteria 1+ /hpf (NONE) H 09/30/22 02:28 Urine Mucus 2+ /hpf 09/30/22 02:28 Discharge Plan Discharge Patient Disposition: Home Clinical Impression: Abdominal pain, Constipation Condition: Stable Prescriptions: New Miralax 17 gram powder in packet 17 g PO DAILY PRN (Reason: constipation) Qty: 14 0RF No Action oseltamivir [Tamiflu] 75 mg capsule 75 mg PO BID 5 Days Qty: 10 0RF ibuprofen 800 mg Tablet 800 mg PO TID PRN (Reason: Abdominal Discomfort) Qty: 30 0RF hydrocodone-acetaminophen 5-325 mg Tablet 1 - 2 tab PO Q4H PRN (Reason: Moderate To Severe Pain) Qty: 15 0RF Discharge Orders: Discharge ED (Routine); Ordered 09/30/22 Ordered By: Margret Lee Referrals: Antonino Underwood MD [Primary Care Provider] - 1-3 days Discharge Diet: Advance as tolerated Discharge Activity: Resume usual activity Patient Instructions: Constipation (ED), Abdominal Pain (ED) Coding Level of Care Code ED 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 Documented by User: Margret Lee MD 09/30/22 04:53 HPI - Abdominal Pain General: Chief Complaint: Abdominal Pain Stated Complaint: lower abd and back pain Time Seen by Provider: 09/30/22 01:56 PFSH ED PFSH: Medical History Attempted IUD removal, unsuccessful History of asthma IUD strings lost Surgical History History of appendectomy History of tonsillectomy Family History Other Cancer Diabetes Hypertension Stroke Denies family history of Dementia Chronic kidney disease (CKD) Anesthesia complication Bleeding disorder Lung disease Social History Smoking and tobacco status: never smoked Second hand smoke exposure: No Smoking risk assessment/counseling performed?: No Alcohol intake: never Desire information about alcohol rehabilitation?: No Counseling given: No Desire information about substance/drug rehabilitation?: No Counseling given: No Adopted: No Caregiver/support person: No Lives independently: Yes Household members: spouse Housing: House Marital status: Number of children: 2 service: No Current occupational status: employed Current occupation: [employer] History of recent travel: No Current gender identity: Female Course Vital Signs: Vital signs: Vital Signs Temperature 98.7 F 09/30/22 01:56 Pulse Rate 89 09/30/22 04:09 Respiratory Rate 14 09/30/22 04:09 Blood Pressure 121/75 09/30/22 04:09 Pulse Oximetry 99 09/30/22 04:09 Oxygen Delivery Me thod 09/30/22 01:56 MDM - Abdominal Pain Medical Decision Making Patient is a 27-year-old female comes to the ED with abrupt onset of left flank pain. Past surgical history of appendectomy and approximately 10 months ago. Denies any history of kidney stones. Denies any dysuria or hematuria. Vitals are stable. Patient appears nontoxic and in no acute distress. She has some left CVA tenderness along with some left lower quadrant abdominal tenderness but rest of exam is benign. Labs and CT kidney stone pending. Patient case was signed over to Dr. Lee and he will be managing patient care and dispo plan. Patient CT here showed some constipation could be causing her pain we will start her on MiraLAX her pains improved. She is stable for discharge. Lab Data 09/30/22 02:28 09/30/22 02:28 Labs/Radiology: Radiology Impressions Abdomen/Pelvis CT 09/30/22 02:24 IMPRESSION: 1. No acute finding. 2. Constipation and other chronic findings above. Absent appendix. Laboratory Results WBC 13.6 10^3/uL (4.0-10.0) H 09/30/22 02:28 RBC 4.73 10^6/uL (4.1-5.3) 09/30/22 02:28 Hgb 14.5 g/dL (11.5-15.3) 09/30/22 02:28 Hct 42.7 % (37.0-47.0) 09/30/22 02:28 MCV 90.3 fl (81-99) 09/30/22 02:28 MCH 30.7 pg (28.0-34.0) 09/30/22 02:28 MCHC 34.0 g/dL (30.0-36.0) 09/30/22 02:28 RDW 12.1 % (12.1-15.1) 09/30/22 02:28 Plt Count 189 10^3/cmm (130-400) 09/30/22 02:28 MPV 9.5 fL (7.4-10.4) 09/30/22 02:28 Neut % (Auto) 84.9 % 09/30/22 02:28 Lymph % (Auto) 9.1 % 09/30/22 02:28 Terrell % (Auto) 4.3 % 09/30/22 02:28 Eos % (Auto) 0.7 % 09/30/22 02:28 Baso % (Auto) 0.3 % 09/30/22 02:28 Neut # (Auto) 11.58 10^3/uL (1.8-7.7) H 09/30/22 02:28 Lymph # (Auto) 1.2 10^3/uL (0.8-4.8) 09/30/22 02:28 Terrell # (Auto) 0.6 10^3/uL (0.2-0.9) 09/30/22 02:28 Eos # (Auto) 0.1 10^3/uL (0.0-0.8) 09/30/22 02:28 Baso # (Auto) 0.0 10^3/uL (0.0-0.1) 09/30/22 02:28 Nucleated RBC % (auto) 0 % 09/30/22 02:28 Nucleated RBCs # 0.0 /100WBC 09/30/22 02:28 Sodium 138 mmol/L (136-145) 09/30/22 02:28 Potassium 3.8 mmol/L (3.5-5.1) 09/30/22 02:28 Chloride 104 mmol/L (98-107) 09/30/22 02:28 Carbon Dioxide 24 mmol/L (22-29) 09/30/22 02:28 Anion Gap 13.8 (5-19) 09/30/22 02:28 BUN 12 mg/dL (6-20) 09/30/22 02:28 Creatinine 0.6 mg/dL (0.5-0.9) 09/30/22 02:28 GFR Calculation 121.8 mL/min (90-130) 09/30/22 02:28 Glucose 107 mg/dL (65-115) 09/30/22 02:28 Calculated Osmolality 286 mOsm/kg (285-295) 09/30/22 02:28 Calcium 9.0 mg/dL (8.5-10.5) 09/30/22 02:28 Total Bilirubin 0.3 mg/dL (0.15-1.2) 09/30/22 02:28 AST 14 U/L (0-32) 09/30/22 02:28 ALT 9 U/L (0-33) 09/30/22 02:28 Alkaline Phosphatase 97 U/L (35-105) 09/30/22 02:28 Total Protein 7.3 g/dL (6.6-8.7) 09/30/22 02:28 Albumin 4.4 g/dL (3.5-5.2) 09/30/22 02:28 Globulin 2.9 g/dL (1.3-4.6) 09/30/22 02:28 Lipase 23 U/L (13-60) 09/30/22 02:28 HCG, Qual Negative (Negative) 09/30/22 02:28 Urine Color Yellow (Yellow) 09/30/22 02:28 Urine Appearance Sl hazy (CLEAR) A 09/30/22 02:28 Urine pH 5 (5-7) 09/30/22 02:28 Ur Specific [place] 1.020 (1.005-1.030) 09/30/22 02:28 Urine Protein Trace (Negative) 09/30/22 02:28 Urine Glucose (UA) Norm (Normal) 09/30/22 02: Urine Ketones 1+ (Negative) H 09/30/22 02:28 Urine Blood 3+ (Negative) H 09/30/22 02:28 Urine Nitrate Negative (Negative) 09/30/22 02:28 Urine Bilirubin Neg (Negative) 09/30/22 02:28 Urine Urobilinogen Norm mg/dL (Negative) 09/30/22 02:28 Ur Leukocyte Esterase Trace (Negative) H 09/30/22 02:28 Urine RBC 10-15 /hpf (0-2) H 09/30/22 02:28 Urine WBC 0-4 /hpf (0-5) H 09/30/22 02:28 Ur Squamous Epith Cells 10-15 /hpf (0-5) H 09/30/22 02:28 Amorphous Sediment Not Reportable 09/30/22 02:28 Urine Bacteria 1+ /hpf (NONE) H 09/30/22 02:28 Urine Mucus 2+ /hpf 09/30/22 02:28 Discharge Plan Discharge Patient Disposition: Home Clinical Impression: Abdominal pain, Constipation Condition: Stable Prescriptions: New Miralax 17 gram powder in packet 17 g PO DAILY PRN (Reason: constipation) Qty: 14 0RF No Action oseltamivir [Tamiflu] 75 mg capsule 75 mg PO BID 5 Days Qty: 10 0RF ibuprofen 800 mg Tablet 800 mg PO TID PRN (Reason: Abdominal Discomfort) Qty: 30 0RF hydrocodone-acetaminophen 5-325 mg Tablet 1 - 2 tab PO Q4H PRN (Reason: Moderate To Severe Pain) Qty: 15 0RF Discharge Orders: Discharge ED (Routine); Ordered 09/30/22 Ordered By: Margret Lee Referrals: Antonino Underwood MD [Primary Care Provider] - 1-3 days Discharge Diet: Advance as tolerated Discharge Activity: Resume usual activity Patient Instructions: Constipation (ED), Abdominal Pain (ED) Coding Level of Care Code ED 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
[2022-09-30 02:37] LABS: Basophils % 0.3 %; Eosinophils # 0.1 10^3/uL (0.0-0.8); Eosinophils % 0.7 %; Hematocrit 42.7 % (37.0-47.0); Hemoglobin 14.5 g/dL (11.5-15.3); Lymphocytes # 1.2 10^3/uL (0.8-4.8); Lymphocytes % 9.1 %; Mean Corpuscular Hemoglobin 30.7 pg (28.0-34.0); Mean Corpuscular Volume 90.3 fl (81-99); Mean Platelet Volume 9.5 fL (7.4-10.4); Monocytes # 0.6 10^3/uL (0.2-0.9); Monocytes % 4.3 %; Neutrophils # 11.58 10^3/uL (1.8-7.7); Neutrophils % 84.9 %; Nucleated Red Blood Cells % 0 %; Platelet Count 189 10^3/cmm (130-400); Red Blood Count 4.73 10^6/uL (4.1-5.3); Red Cell Distribution Width 12.1 % (12.1-15.1); White Blood Count 13.6 10^3/uL (4.0-10.0)
[2022-09-30] MEDS: ondansetron 2 mg/ML SDV 2 mL 4 MG IVP (02:43)
[2022-09-30] MEDS: sodium chloride 0.9% 1,000 ML 999 ML IV (02:43)
[2022-09-30] MEDS: morphine 4 mg/mL SDV 1 mL IVP (02:43)
[2022-09-30 02:54] LABS: HCG, Serum Qual Negative (Negative)
[2022-09-30 02:58] LABS: Alanine Aminotransferase 9 U/L (0-33); Albumin Level 4.4 g/dL (3.5-5.2); Alkaline Phosphatase 97 U/L (35-105); Anion Gap 13.8 (5-19); Aspartate Amino Transferase 14 U/L (0-32); Blood Urea Nitrogen 12 mg/dL (6-20); Carbon Dioxide 24 mmol/L (22-29); Chloride 104 mmol/L (98-107); Creatinine Clr Calc Pharmacy 152.5144; Globulin 2.9 g/dL (1.3-4.6); Glomerular Filtration Rate 121.8 mL/min (90-130); Glucose 107 mg/dL (65-115); Lipase 23 U/L (13-60); Osmolality Calculated 286 mOsm/kg (285-295); Potassium 3.8 mmol/L (3.5-5.1); Sodium 138 mmol/L (136-145); Total Bilirubin 0.3 mg/dL (0.15-1.2); Total Protein 7.3 g/dL (6.6-8.7)
[2022-09-30 04:01] LABS: Glucose Urine UA Norm (Normal); Ketones Urine 1+ (Negative); Protein Urine Trace (Negative); Urine Appearance SL Hazy (CLEAR); Urine Color Yellow (Yellow); pH Urine 5 (5-7)
[2022-09-30 04:02] LABS: Bilirubin Urine Neg (Negative); Blood Urine 3+ (Negative); Leukocyte Esterase Urine Trace (Negative); Nitrate Urine Negative (Negative); Urobilinogen Urine Norm (Negative)
[2022-09-30 04:03] LABS: Add Urine Culture? No; Add Urine Microscopic? YES; Bacteria Urine 1+ /hpf; Mucus Urine 2+ /hpf; WBC Urine 0-4 /hpf (0-5)
[2022-09-30 04:09] VITALS: BP 121/75; PULSE 89; RESP 14; O2SAT 99
== END 2022-09-30 05:06 | disposition home or self-care (01) ==
PROVIDERS: Physician Assistant; Emergency Provider Emergency Medicine; PCP Family Medicine
DX: R10.9 Unspecified abdominal pain (principal); K59.00 Constipation, unspecified
CPT/HCPCS: 74176; 80053; 81001; 83690; 84703; 85025; 96361; 96374; 96375; 99285; J2270; J2405; J7030